=== PATIENT | female | born 1960 | race Caucasian/White ===

== ENCOUNTER 2016-12-20 19:52 | Emergency (ER) | payer SELFPAY ==
[~2016-12-20 19:52] MED LIST: ALDACTAZIDE PO; ASPIRIN PO; ASPIRIN325 M1 PO; CIPRO250 MG PO; COATED ASPIRIN325 M1 PO; COMBIVENT14.7 GM INH; CVS PHARMACY; FLAGYL PO; HCTZ PO; LISINOPRIL PO; LISINOPRIL20 MG PO; PLAVIX PO; PRILOSEC PO; PROTONIX PO; SYMBICORT80 INH; [UNRECOGNIZED DRUG - OTHER] PO
== END 2016-12-20 23:15 | disposition left against medical advice (07) ==
LOC: CED 19:52
DX: Z53.21 Procedure and treatment not carried out due to patient leaving prior to being seen by health care provider (principal)